=== PATIENT | male | born 1975 | race Caucasian/White ===

== ENCOUNTER 2017-09-06 07:35 | Emergency (ER) | payer SELFPAY ==
[2017-09-06 07:51] VITALS: BP 144/102
--- NOTE | 2017-09-06 08:04 | UC ---
Respiratory Complaint HPI - HPI Summary HPI Summary: cough x 7 days + head cold, chest congestion , dry cough + chest pain , mid chest area since yesterday + shortness of breath , no fever, no chills - History of Current Complaint Chief Complaint: UCRespiratory Stated Complaint: CHEST HEBER Time Seen by Provider: 09/06/17 07:37 Hx Obtained From: Patient Onset/Duration: Gradual Onset, Lasting Days - 7, Still Present Timing: Constant Severity Initially: Moderate Severity Currently: Moderate Character: Cough: Nonproductive Aggravating Factors: Exertion, Deep Breaths Associated Signs And Symptoms: Positive: Dyspnea, Pleuritic Chest Pain, URI, Nasal Congestion. Negative: Fever, Chills, Wheezing, Hemoptysis, Dizziness, Calf Pain, Calf Swelling, Hoarseness, Sinus Discomfort - Allergies/Home Medications Allergies/Adverse Reactions: Allergies Allergy/AdvReac Type Severity Reaction Status Date / Time Codeine Allergy Intermediate Hallucinati Verified 09/06/17 07:51 ons Home Medications: Home Medications Dextromethorphan-Guaifenesin [Mucinex Dm Maximum Streng 60-1200 mg] 2 tab PO Q12H PRN 09/06/17 [History Confirmed 09/06/17] PMH/Surg Hx/FS Hx/Imm Hx Previously Healthy: Yes - Surgical History Surgical History: Yes Surgery Procedure, Year, and Place: Left TKA, ~2011, [facility]; T&A as a child - Family History Known Family History: Negative: Diabetes - Social History Alcohol Use: Rare Substance Use Type: None Smoking Status (MU): Current Some Day Smoker Type: Cigarettes Amount Used/How Often: 1/4 PPD Have You Smoked in the Last Year: Yes Household Exposure Type: Cigarettes - Immunization History Most Recent Influenza Vaccination: Not the Season Review of Systems Constitutional: Negative Skin: Negative Eyes: Negative ENT: Nasal Discharge Respiratory: Cough Cardiovascular: Chest Pain Gastrointestinal: Negative Genitourinary: Negative Is Patient Immunocompromised?: No All Other Systems Reviewed And Are Negative: Yes Physical Exam Triage Information Reviewed: Yes Appearance: Well-Appearing, Well-Nourished, Pain Distress Vital Signs: Initial Vital Signs Temp 98 F 09/06/17 07:44 Pulse 80 09/06/17 07:44 Resp 18 09/06/17 07:44 BP 144/102 09/06/17 07:44 Pulse Ox 100 09/06/17 07:44 Vital Signs Reviewed: Yes Eyes: Positive: Conjunctiva Clear ENT: Positive: Normal ENT inspection, Hearing grossly normal, Pharynx normal, Pharyngeal erythema Neck exam: Normal Neck: Positive: Supple, Nontender, No Lymphadenopathy Respiratory: Positive: Chest non-tender, Lungs clear, Normal breath sounds Cardiovascular: Positive: RRR, No Murmur, Pulses Normal Abdominal Exam: Normal Abdomen Description: Positive: Nontender, Soft. Negative: Distended, Guarding Bowel Sounds: Positive: Present Skin Exam: Normal UC Diagnostic Evaluation - Laboratory O2 Sat by Pulse Oximetry: 100 Respiratory Course/Dx - Differential Dx/Diagnosis Provider Diagnoses: bronchitis. costochondritis Discharge - Discharge Plan Condition: Stable Disposition: HOME Prescriptions: Benzonatate [TESSALON 200 MG CAP] 200 mg PO Q8H #21 cap Naproxen [Naproxen 500 mg] 500 mg PO BID #20 tab Patient Education Materials: Acute Bronchitis (ED), Costochondritis (ED) Referrals: Zaid Sinclair DO [Primary Care Provider] -
== END 2017-09-06 08:10 | disposition home or self-care (01) ==
LOC: UCCORT 07:35
DX: J40 Bronchitis, not specified as acute or chronic (principal); M94.0 Chondrocostal junction syndrome [Tietze]; Z88.5 Allergy status to narcotic agent; F17.210 Nicotine dependence, cigarettes, uncomplicated
CPT/HCPCS: 93005; 99212; G0463

== ENCOUNTER 2019-10-17 19:59 | Emergency (ER) | payer BC ==
--- OUTSIDE RECORDS SUMMARY | 2019-10-17 20:07 | XMS REPORT | Continuity of Care Document ---
:1975 External Reference #:[id number] Author Name Ania Haywood PA-C (transmitted by agent of provider Hawa Acuna) Address [address] [place] [address] Care Team Providers Name Role Phone Zaid Sinclair DO Care Team Information Forms Builder [phone] Brennan Cullen MD - Cardiovascular Care Team Information Forms Builder [phone] Disease Problems Active Problems Provider Date Essential hypertension Ania Haywood PA-C Onset: 08/30/2019 Social History Type Date Description Comments Sex Unknown ETOH Use Rarely consumes alcohol Tobacco Use Start: Unknown End: Unknown Patient is a former smoker Smoking Status Reviewed: 08/30/19 Patient is a former smoker Tattoo/Piercing Tattoo Allergies, Adverse Reactions, Alerts Active Allergies Reaction Severity Comments Date Codeine Other (See Comments) 08/30/2019 Hydrocodone Other (See Comments) 08/30/2019 Medications Active Medications SIG Qnty Indications Ordering Date Provider Omeprazole Magnesium Take 2 Capsules qd 28caps Unknown 08/27/2019 20.6(20Base) mg Capsules Famotidine Take 1 tablet (20 30tabs Unknown 05/27/2019 20mg mg total) by mouth Tablets at hs Inaoeubx-Ssxkaixjh-Z Take 10 mL by 355units Unknown 05/27/2019 imethicone mouth 2 (two) times a day as [phone] needed for Suspension indigestion Gabapentin One capsule 3 9caps Unknown 01/25/2019 100mg times daily Capsules Amitriptyline HCL Take 50 mg by Unknown mouth nightly 25mg Tablets Aspirin 81 Low Dose Chew 81 mg nightly Unknown 81mg Chewtabs Atorvastatin Calcium Take 10 mg by Unknown mouth nightly 10mg Tablets Ibuprofen 200 Take 400 mg by Unknown 200mg mouth 2 (two) Tablets times a day as needed for pain Carbidopa-Levodopa Take 1 Tablet By Unknown Mouth Three Times 25-100mg Tablets A Day Fluticasone Use 1 [place] Each Unknown Propionate Nostril 1-2 Times 50mcg/Act A Day Suspension Immunizations Description No Information Available Vital Signs Date Vital Result Comment 08/30/2019 7:56am BP Systolic 135 mmHg BP Diastolic 86 mmHg Heart Rate 85 /min Height 66 inches 5'6" Weight 200.00 lb BMI (Body Mass Index) 32.3 kg/m2 Body Temperature 98.0 F Results Test Acquired Date Facility Test Result H/L Range Note CBC and 08/27/2019 N2N/CCD Import WBC 7.5 10*3/uL 4.1 - 11.0 differential RBC 5.61 10*6/uL 4.60 - 6.10 Hemoglobin 15.7 g/dL 13.5 - 18.0 Hematocrit 46.4 % 41.0 - 53.0 MCV 82.7 fL 80.0 - 95.0 MCH 27.9 pg 27.0 - 32.0 MCHC 33.8 g/dL 32.0 - 36.0 RDW 13.9 % 10.5 - 14.5 Platelets 230 10*3/uL 150 - 450 MPV 9.2 fL 7.1 - 10.7 Neutrophils % 68.1 % 35.0 - 75.0 Lymphocytes Relative 24.4 % 16.0 - 52.0 Monocytes Relative 5.9 % 0.0 - 8.0 Eosinophils Relative 1.2 % 0.0 - 5.0 Basophils Relative 0.4 % 0.0 - 4.0 Neutrophils Absolute 5.1 10*3/uL 1.8 - 7.7 Lymphocytes Absolute 1.8 10*3/uL 1.2 - 4.8 Monocytes Absolute 0.4 10*3/uL 0.0 - 0.8 Eosinophils Man 0.1 10*3/uL 0.0 - 0.5 Basophils Absolute 0.0 10*3/uL 0.0 - 0.2 Poct troponin 08/27/2019 N2N/CCD Import Poc Troponin I <0.01 Low 0.01 - 0.07 ng/mL Poct Basic 08/27/2019 N2N/CCD Import Poc Sodium 137 136 - 145 Metabolic Panel Mmol/L Poc Potassium 3.9 3.6 - 5.2 Mmol/L Poc Chloride 103 100 - 108 Mmol/L Poc Co2 25 22 - 31 Mmol/L Poc Anion Gap 9 7 - 16 Mmol/L Poc BUN 12 7 - 24 MG/DL Poc Creatinine 0.8 0.8 - 1.3 MG/DL Poc BUN/Creatinine Ratio 15.0 10.0 - 20.0 Ratio Poc Glucose (iStat) 99 70 - 99 MG/DL Poc Ionized Calcium 4.7 4.6 - 5.3 MG/DL Poc GFR >60 >59 ml/min/1.73m2 Poc GFR () >60 >59 ml/min/1.73m2 Poc GFR Interpretation ------ Performed by: Performed By [facility] Clinical Staff Procedures Description No Information Available Medical Devices Description No Information Available Encounters Type Date Location Provider Dx Diagnosis Office Visit 08/30/2019 [place] [address] Office Destiny Day1Domonique Gastro- esophageal 8:00a DEMARIO reflux disease without esophagitis Assessments Date Code Description Provider 08/30/2019 [place] Gastro-esophageal reflux disease without JOHN Day esophagitis Plan of Treatment Future Appointment(s):12/02/2019 8:00 am - Jaron Pang MD at Outpatient - Functional Status Description No Information Available Mental Status Description No Information Available Referrals Description No Information Available
--- OUTSIDE RECORDS SUMMARY | 2019-10-17 20:07 | XMS REPORT | Continuity of Care Document ---
:1975 External Reference #:[id number] Author Name Zaid Sinclair, Address [facility] [place] [address] Problems Active Problems Provider Date Tobacco user Albertina Chan PA Onset: 2011 No current problems or disability Onset: 11/05/2010 Social History Type Date Description Comments Sex Unknown Tobacco Use Start: Unknown End: Unknown Former Cigarette Smoker ETOH Use Rarely consumes alcohol Tobacco Use Start: Unknown End: Unknown Patient is a former smoker Smoking Status Reviewed: 08/05/19 Patient is a former smoker Allergies, Adverse Reactions, Alerts Active Allergies Reaction Severity Comments Date Tramadol 12/07/2012 Codeine hallucinations 11/05/2010 Medications Active Medications SIG Qnty Indications Ordering Date Provider Famotidine take 1 tablet by 90Tablet Zaid Sinclair, 07/14/2019 20mg Tablets mouth every day DO Trazodone HCL Take 2 Tablet By 90Tablet Zaid Sinclair, 06/28/2019 50mg Mouth Everyday AT DO Tablets Bedtime Gabapentin take 3 pills by 270caps Zaid Sinclair, 06/08/2019 100mg mouth at night DO Capsules Amitriptyline HCL take 1 tablet at 90tabs G43.009 Zaid Sinclair, 2018 50mg bedtime DO Tablets Atorvastatin Calcium take 1 tablet 90tabs E78.2 Zaid Sinclair, 10/05/2018 daily DO 10mg Tablets Alprazolam 1 by mouth every 30tabs F41.9 Zaid Sinclair, 09/17/2018 0.25mg 6 hours as needed DO Tablets for shortness of breath/chest pain Omeprazole 2 by mouth every 30caps Zaid Sinclair, 08/27/2018 20mg day in the Am and DO Capsules DR one at night Amlodipine take 1 capsule 90caps Zaid Sinclair, 04/04/2018 Besylate/Benazepril daily DO Hydrochloride 5-20mg Capsules Carbidopa-Levodopa Take 1 Tablet By Unknown Mouth at bedtime 25-100mg Tablets Aspirin 81 1 by mouth every Unknown 81mg Tablets day DR History Medications Sulfacetamide Sodium 1-2 drops in each 5ml Zaid Sinclair, 09/16/2019 - 10% eye every 4 hours DO 09/26/2019 Solution while awake x 1 week Fluticasone Propionate Use 1 [place] Each 48ml Zaid Sinclair, 08/27/2019 - Nostril 1-2 Times DO 10/12/2019 50mcg/Act Suspension A Day Fluticasone Propionate 1 spray each 16gm Zaid Sinclair, 08/05/2019 - nostril 1-2 times DO 08/26/2019 50mcg/Act Suspension a day Famotidine take one tablet 30tabs Zaid Sinclair, 06/03/2019 - 20mg Tablets by mouth daily DO 07/13/2019 Trazodone HCL take 2 tablets by 180tabs Zaid Sinclair, 06/03/2019 - 50mg mouth at bedtime DO 06/27/2019 Tablets Gabapentin Take 2 Capsules 180Caps Zaid Sinclair, 04/19/2019 - 100mg Capsules By Mouth In The DO 06/03/2019 Evening Prednisone 6 by mouth today 21tabs R21 Digiovanna, 04/13/2019 - 10mg Tablets and decrease by JOHAN Cardona 04/19/2019 one every 1 day, stop after 6 doses, take with food Medications Administered in Office Medication SIG Qnty Indications Ordering Provider Date Torodol Injection 15 MG Dose Zaid Sinclair, 12/24/2018 Injection Torodol Injection 15 MG Dose Kate Aquino PA 03/25/2018 Injection Immunizations CPT Code Status Date Vaccine Lot # [id number] Given 06/04/2019 Influenza Virus Vaccine,Quadrivalent,Split,Preserv Free, 0.5mL,Im [address] Given 05/31/2019 Hepatitis B Vac Ped/Adolescent 3 Dose Schedule 57274 Given 04/30/2019 Hepatitis B Vac Ped/Adolescent 3 Dose Schedule 64294 Given 11/13/2018 MMR Virus Immunization 41103 Given 10/30/2018 Influenza Vac, Quadrivalent, Split, 0.5mL Dosage, Im Use 59842 Given 05/28/2013 Afluria Or Fluvirin Flu Vac Intramuscular 41054 Refused 08/05/2019 Tdap (Adacel) Ages 7 And Above Only 75976 Refused 10/05/2018 Tdap (Adacel) Ages 7 And Above Only 67221 Refused 07/20/2018 Afluria Or Fluvirin Flu Vac Intramuscular Vital Signs Date Vital Result Comment 10/13/2019 4:06pm Weight 204.00 lb Heart Rate 88 /min BP Systolic 138 mmHg BP Diastolic 84 mmHg Respiratory Rate 18 /min Height 64.5 inches 5'4.50" BMI (Body Mass Index) 34.5 kg/m2 08/05/2019 4:19pm Weight 206.00 lb Heart Rate 92 /min BP Systolic 134 mmHg BP Diastolic 88 mmHg Respiratory Rate 18 /min Height 64.5 inches 5'4.50" O2 % BldC Oximetry 98 % ra BMI (Body Mass Index) 34.8 kg/m2 Results Test Acquired Date Facility Test Result H/L Range Note CBC With Diff 08/16/2019 [facility] WBC 7.2 10*3/uL (4.1-11.0) [phone] RBC 5.64 10*6/uL (4.60-6.10) HGB 15.8 g/dL (13.5-18.0) HCT 46.8 % (41.0-53.0) MCV 82.9 fL (80.0-95.0) MCH 28.0 pg (27.0-32.0) MCHC 33.8 g/dL (32.0-36.0) RDW 13.5 % (10.5-14.5) PLT 238 10*3/uL (150-450) MPV 9.5 fL (7.1-10.7) Neut % 66.2 % (35.0-75.0) Lymph % 25.4 % (16.0-52.0) [place] % 6.6 % (0.0-8.0) Eos % 1.3 % (0.0-5.0) Baso % 0.5 % (0.0-4.0) Neut # 4.7 10*3/uL (1.8-7.7) Lymph # 1.8 10*3/uL (1.2-4.8) [place] # 0.5 10*3/uL (0.0-0.8) Eos # 0.1 10*3/uL (0.0-0.5) Baso # 0.0 10*3/uL (0.0-0.2) CMP 08/16/2019 [facility] Sodium 139 mmol/L (136-145) [phone] Potassium 4.6 mmol/L (3.6-5.2) Chloride 103 mmol/L (100-108) Co2 29 mmol/L (22-31) Anion Gap 7 mmol/L (7-16) Urea Nitrogen 15 mg/dL (7-24) Creatinine 0.99 mg/dL (0.80-1.30) BUN/Creat Ratio 15.2 RATIO (10.0-20.0) Glucose 96 mg/dL (70-99) Calcium 9.3 mg/dL (8.4-10.2) Total Protein 7.4 g/dL (6.4-8.2) Albumin 4.2 g/dL (3.5-4.6) Globulin 3.2 g/dL (2.7-4.3) Alb/Glob Ratio 1.3 RATIO Alkaline Phosphatase 89 U/L (45-117) Bilirubin,Total 0.3 mg/dL (0.0-1.0) Ast (Sgot) 32 U/L (11-39) Alt (SGPT) 73 U/L (12-78) GFR >60 ml/min/1.73m2 (>59) GFR ( Amer) >60 ml/min/1.73m2 (>59) GFR Interpretation <SEE NOTE> 1 Lipid 08/16/2019 [facility] Cholesterol @ 145 mg/dL (0-200) [phone] Triglyceride @ 118 mg/dL (30-200) 2 HDL Cholesterol @ 39 mg/dL Low (>40) 3 Chol/HDL Ratio 3.7 RATIO 4 LDL Chol (Calc) 82 mg/dL (<130) 5 Laboratory 08/16/2019 [facility] TSH,Ultrasensitive @ 0.783 (0.360- 4.170) test finding [phone] mIU/L 1 NORMAL KIDNEY FUNCTION OR MILD DISEASE - GFR >OR= 60 CHRONIC KIDNEY DISEASE - GFR 15 - 59 RENAL FAILURE - GFR <15 Est. GFR calculation based on the MDRD study equation, which assumes a steady state for creatinine. Est. GFR should not be used for medication dosing. 2 FASTING 3 PER NCEP ATP III GUIDELINES: RESULTS LOWER THAN 40 MG/DL ARE SUGGESTIVE OF INCREASED RISK FOR CORONARY ARTERY DISEASE. RESULTS > OR = TO 60 MG/DL ARE CONSIDERED A NEGATIVE RISK FACTOR. 4 INTERPRETATION OF CHOL-HDL RATIO CHD RISK FEMALE MALE VERY HIGH >8.3 >14.3 HIGH 5.6- 8.3 6.7- 14.3 AVERAGE 3.7- 5.6 4.0- 6.7 BELOW AVERAGE 2.5- 3.7 2.7- 4.0 PROTECTED <2.5 <2.7 5 PER NCEP ATP III GUIDELINES: OPTIMAL < 100 NEAR OPTIMAL 100 - 129 BORDERLINE HIGH 130 - 159 HIGH 160 - 189 VERY HIGH > 189 Procedures Date Code Description Status 01/01/2017 99285004 Colonoscopy Completed Medical Devices Description No Information Available Encounters Type Date Location Provider Dx Diagnosis Office Visit 08/05/2019 [facility] Zaid Sinclair DO Z00.00 Encntr for general 4:15p adult medical exam w/o abnormal findings I10 Essential (primary) hypertension E78.2 Mixed hyperlipidemia R07.9 Chest pain, unspecified K21.9 Gastro-esophageal reflux disease without esophagitis R06.02 Shortness of breath I63.9 Cerebral infarction, unspecified R20.9 Unspecified disturbances of skin sensation R53.1 Weakness G43.009 Migraine w/o aura, not intractable, w/o status migrainosus Z13.31 Encounter for screening for depression Z13.89 Encounter for screening for other disorder G47.00 Insomnia, unspecified E66.9 Obesity, unspecified J01.90 Acute sinusitis, unspecified K58.0 Irritable bowel syndrome with diarrhea Z68.34 Body mass index (BMI) 34.0-34.9, adult Office Visit 06/03/2019 4:15p [facility] SinclairZaid, DO R07.9 Chest pain, unspecified E66.9 Obesity, unspecified K21.9 Gastro-esophageal reflux disease without esophagitis R06.02 Shortness of breath I63.9 Cerebral infarction, unspecified R20.9 Unspecified disturbances of skin sensation R53.1 Weakness G43.009 Migraine w/o aura, not intractable, w/o status migrainosus G47.00 Insomnia, unspecified Z68.34 Body mass index (BMI) 34.0-34.9, adult Office Visit 04/13/2019 4:00p [facility] Digiovanna, Dulce, R21 Rash and other LINOLEUM LAYER nonspecific skin eruption Assessments Date Code Description Provider 10/13/2019 I10 Essential (primary) hypertension Zaid Sinclair, DO 10/13/2019 E78.2 Mixed hyperlipidemia SinclairZaid paiz, DO 10/13/2019 R07.9 Chest pain, unspecified SinclairBiancaew, DO 10/13/2019 K21.9 Gastro-esophageal reflux disease without Sinclair, Zaid, DO esophagitis 10/13/2019 R20.9 Unspecified disturbances of skin SinclairZaid paiz, DO sensation 10/13/2019 R53.1 Weakness Zaid Sinclair, DO 10/13/2019 G43.009 Migraine without aura, not intractable, Sinclair, Zaid, DO without status migra 10/13/2019 G47.00 Insomnia, unspecified SinclairZaid paiz, DO 10/13/2019 K58.0 Irritable bowel syndrome with diarrhea Zaid Sinclair, DO 10/13/2019 I63.9 Cerebral infarction, unspecified SinclairBiancaew, DO 10/13/2019 E66.9 Obesity, unspecified Sinclair, Zaid, DO 10/13/2019 G47.9 Sleep disorder, unspecified Sinclair, Zaid, DO 10/13/2019 Z68.34 Body mass index (BMI) 34.0-34.9, adult Zaid Sinclair, 08/05/2019 Z00.00 Encounter for general adult medical Zaid Sinclair DO examination without abnormal findings 08/05/2019 I10 Essential (primary) hypertension Zaid Sinclair, DO 08/05/2019 E78.2 Mixed hyperlipidemia Sinclair, Zaid, DO 08/05/2019 R07.9 Chest pain, unspecified Sinclair, Zaid, DO 08/05/2019 K21.9 Gastro-esophageal reflux disease without Sinclair, Zaid, DO esophagitis 08/05/2019 R06.02 Shortness of breath Sinclair, Zaid, DO 08/05/2019 I63.9 Cerebral infarction, unspecified Sinclair, Zaid, DO 08/05/2019 R20.9 Unspecified disturbances of skin Sinclair, Zaid, DO sensation 08/05/2019 R53.1 Weakness Sinclair, Zaid, DO 08/05/2019 G43.009 Migraine without aura, not intractable, Sinclair, Zaid, DO without status migra 08/05/2019 Z13.31 Encounter for screening for depression Sinclair, Zaid, DO 08/05/2019 Z13.89 Encounter for screening for other Sinclair, Zaid, DO disorder 08/05/2019 G47.00 Insomnia, unspecified Sinclair, Zaid, DO 08/05/2019 E66.9 Obesity, unspecified Sinclair, Zaid, DO 08/05/2019 J01.90 Acute sinusitis, unspecified Sinclair, Zaid, DO 08/05/2019 K58.0 Irritable bowel syndrome with diarrhea Sinclair, Zaid, DO 08/05/2019 Z68.34 Body mass index (BMI) 34.0-34.9, adult Sinclair, Zaid, DO 06/03/2019 R07.9 Chest pain, unspecified Sinclair, Zaid, DO 06/03/2019 E66.9 Obesity, unspecified Sinclair, Zaid, DO 06/03/2019 K21.9 Gastro-esophageal reflux disease without Sinclair, Zaid, DO esophagitis 06/03/2019 R06.02 Shortness of breath Sinclair, Zaid, DO 06/03/2019 I63.9 Cerebral infarction, unspecified Sinclair, Zaid, DO 06/03/2019 R20.9 Unspecified disturbances of skin Sinclair, Zaid, DO sensation 06/03/2019 R53.1 Weakness Sinclair, Zaid, DO 06/03/2019 G43.009 Migraine without aura, not intractable, Sinclair, Zaid, DO without status migra 06/03/2019 G47.00 Insomnia, unspecified Zaid SinclairDO 06/03/2019 Z68.34 Body mass index (BMI) 34.0-34.9, adult Zaid SinclairDO 04/13/2019 R21 Rash and other nonspecific skin eruption Dulce Kaur NP Plan of Treatment Future Appointment(s):02/11/2020 4:15 pm - Zaid Sinclair DO at [facility]10/13/2019 - Zaid Sinclair DOI10 Essential (primary) hypertensionComments:Today, the patient's BP is slightly elevated at 138/84.Continue taking Amlodipine/ Benazepril - 5/20 mg po daily.The patient will benefit from maintaining a low sodium diet, cut down caffeine intakeEncourage the patient to monitor BP periodically at home and maintain a log of the same to bring along during the next visit for comparison.Advise the patient to stay hydrated.Advise the patient to maintaina normal cardiac exercise regimen. We will continue to monitor.Follow up:Follow up in December or January at 4:15.E78.2 Mixed hyperlipidemiaComments:Labs were reviewed in detail with the patient. LDL is well controlled.Continue taking Atorvastatin 10 mg po daily.The patient may benefit from decreasing the total amount of fat. Can choose lean meats, fat free or 1% fat milk, and low-fat dairy products such as yogurt and cheese.Would benefit from replacing unhealthy fats with healthy fats.Would benefit by eating foods which are high in fiber.We will recheck it in the future.We will continue to monitor.R07.9 Chest pain, unspecifiedComments:He was evaluated at [facility] and was diagnosed with GERD. Encouraged the patient to continue taking Famotidine, Omeprazole. Encouraged the patient to avoid spicy and greasy food. Advised the patient to eat small multiple meals. Advised the patient to limit caffeine and carbonated beverages. Advised not to eat three hours prior to sleeping. Encouraged the patient to elevate the head and sleep during night. Advised to maintain a healthy weight. Pt has a GI appointment scheduled in November and would have an EGD at that time. Will continue to monitor..K21.9 Gastro-esophageal reflux disease without esophagitisComments:Advised the patient to continue taking Omeprazole and Famotidine as directed.Will benefit from avoiding spicy, greasy food, Juices containing citrus, sauce, chocolates, alcohol.Will benefit from eatingsmall multiple meals.Will benefit from limiting caffeine and carbonated beverages.Will benefit from not to eat three hours prior to sleeping.Will benefit from elevating the head and sleep during night.Maintain a healthy weight.R20.9 Unspecified disturbances of skin sensationComments:Recommendations: Recommended the pt to continue taking Carbidopa/Levodopa, Gabapentin as directed.Recommended the pt to follow up with Neurologist as scheduled. Will continue to monitor.R53.1 WeaknessComments: Encouraged the patient to follow up with Neurology as directed. Will continue to monitor.G43.009 Migraine without aura, not intractable, without status migraComments:Encouraged the patient to continue taking the Amitriptyline and Gabapentin as directed. Encouragedthe patient to follow up with the Neurologist as scheduled. Will continue to lcyltciK16.00 Insomnia, unspecifiedComments:Continue taking Trazodone as directed. We will continue to monitor.K58.0 Irritable bowel syndrome with njufafrpH96.9 Cerebral infarction, unspecifiedComments:Recommended the pt to continue on the current medication regimen. Recommended the pt to follow up with Neurology, Dr. Pacheco as scheduled. Will continue to monitor.E66.9 Obesity, unspecifiedComments:The patient has lost 2lbs of body weight since the previous visit and he currently weighs around 204lbs. A detailed discussion was had with the patient regarding his body weight and BMI. He was made aware about the health hazards of obesity including diabetes, hypertension, cardiac diseases, and other various risk factors. He was advised to maintain a healthy and low-calorie diet and a regular exercise regimen which will help him lose weight.G47.9 Sleep disorder, cpwgsfhicqgK64.34 Body mass index (BMI) 34.0-34.9, adultComments:BMI is at 34.5. The patient should try to lose weight with low-calorie diet and exercises. We willcontinue to monitor weight and BMI periodically. Functional Status Description No Information Available Mental Status Description No Information Available Referrals Description No Information Available
[2019-10-17 20:11] VITALS: BP 137/83
[2019-10-17 20:36] LABS: Influenza A Molecular Negative (Negative); Influenza B Molecular Negative (Negative)
[2019-10-17] MEDS ORDERED: Albuterol/Ipratropium NEB.SOL* Albuterol 2.5 MG/Ipratropium 0.5 MG 3 ML INH ONE (20:45)
--- NOTE | 2019-10-17 20:45 | UC ---
Respiratory Complaint HPI - HPI Summary HPI Summary: Started today with cough, headache, sore throat, body aches, chills and wheezing. No H/O asthma. - History of Current Complaint Stated Complaint: COUGH/CHILLS/WEAKNESS Hx Obtained From: Patient Onset/Duration: Sudden Onset, Lasting Days - 1, Worse Since - onset Timing: Constant Severity Initially: Mild Severity Currently: Moderate Pain Intensity: 6 Character: Cough: Nonproductive Aggravating Factors: Deep Breaths, Recumbent Position Alleviating Factors: Nothing Associated Signs And Symptoms: Positive: Fever, Wheezing, URI, Nasal Congestion - Allergies/Home Medications Allergies/Adverse Reactions: Allergies Allergy/AdvReac Type Severity Reaction Status Date / Time codeine Allergy Hallucinati Verified 10/17/19 20:12 ons Home Medications: Home Medications Amitriptyline TAB* [Elavil TAB*] 50 mg PO BEDTIME 10/17/19 [History Confirmed ] Atorvastatin* [Lipitor 10 MG*] 10 mg PO BEDTIME 10/17/19 [History Confirmed 09/06] Carbidopa/Levodopa [Carbidopa-Levodopa 25-100 Tab] 1 each PO DAILY 10/17/19 [ History Confirmed 10/17/19] Famotidine TAB* [Pepcid 20 MG TAB*] 20 mg PO DAILY 10/17/19 [History Confirmed 10/17/19] Gabapentin CAP(*) [Neurontin 300 CAP(*)] 300 mg PO BEDTIME 10/17/19 [History Confirmed 10/17/19] Omeprazole 40 mg PO DAILY 10/17/19 [History Confirmed 10/17/19] amLODIPine TAB* [Norvasc 5 mg TAB*] 20 mg PO DAILY 10/17/19 [History Confirmed 10/17/19] predniSONE 20 mg TAB [Deltasone 20 MG TAB*] 60 mg PO DAILY #18 tab 10/17/19 [Rx] PMH/Surg Hx/FS Hx/Imm Hx Previously Healthy: Yes Endocrine History: Dyslipidemia Cardiovascular History: Hypertension GI/ History: Gastroesophageal Reflux - Surgical History Surgical History: Yes Surgery Procedure, Year, and Place: Left TKA, ~2011, [facility]; T&A as a child - Family History Known Family History: Positive: Hypertension Negative: Diabetes - Social History Occupation: Employed Full-time Lives: With Family Alcohol Use: Rare Substance Use Type: None Smoking Status (MU): Former Smoker Type: Cigarettes Amount Used/How Often: 1/4 PPD Have You Smoked in the Last Year: Yes When Did the Patient Quit Smoking/Using Tobacco: 2018 Household Exposure Type: Cigarettes - Immunization History Most Recent Influenza Vaccination: Not the Season Review of Systems All Other Systems Reviewed And Are Negative: Yes Constitutional: Positive: Fever, Chills, Fatigue ENT: Positive: Sore Throat Respiratory: Positive: Shortness Of Breath, Cough Musculoskeletal: Positive: Myalgia Neurological/Mental Status: Positive: Headache Is Patient Immunocompromised?: No Physical Exam Triage Information Reviewed: Yes Appearance: No Pain Distress, Well-Nourished, Ill-Appearing Vital Signs: Initial Vital Signs Temp 98.0 F 10/17/19 20:06 Pulse 82 10/17/19 20:06 Resp 18 10/17/19 20:06 BP 137/83 10/17/19 20:06 Pulse Ox 97 10/17/19 20:06 Vital Signs Reviewed: Yes Eyes: Positive: Conjunctiva Clear ENT: Positive: Pharynx normal, TMs normal Neck exam: Normal Respiratory: Positive: Wheezing - expiratory wheeze with coughing. Cardiovascular Exam: Normal Musculoskeletal Exam: Normal Neurological Exam: Normal Psychological Exam: Normal Skin Exam: Normal Respiratory Course/Dx - Differential Dx/Diagnosis Differential Diagnosis/HQI/PQRI: Asthma, Influenza, Lower Resp Infection, Sinusitis Provider Diagnosis: Upper respiratory infection with cough and congestion, Acute bronchospasm Discharge ED - Sign-Out/Discharge Documenting (check all that apply): Patient Departure All imaging exams completed and their final reports reviewed: No Studies - Discharge Plan Condition: Stable Disposition: HOME Prescriptions: predniSONE 20 mg TAB [Deltasone 20 MG TAB*] 60 mg PO DAILY #18 tab Patient Education Materials: Upper Respiratory Infection (DC), Bronchospasm (ED ) Forms: *Work Release Referrals: Zaid Sinclair DO [Primary Care Provider] - - Billing Disposition and Condition Condition: STABLE Disposition: Home
== END 2019-10-17 21:13 | disposition home or self-care (01) ==
LOC: UCCORT 19:59
DX: J06.9 Acute upper respiratory infection, unspecified (principal); R05 Cough; J98.01 Acute bronchospasm; R09.89 Other specified symptoms and signs involving the circulatory and respiratory systems; E78.5 Hyperlipidemia, unspecified; I10 Essential (primary) hypertension; K21.9 Gastro-esophageal reflux disease without esophagitis; M79.10 Myalgia, unspecified site; Z88.5 Allergy status to narcotic agent; Z87.891 Personal history of nicotine dependence; Z79.899 Other long term (current) drug therapy
CPT/HCPCS: 99212; A9270-GY; G0463; J7512